=== PATIENT | female | born 2000 | race Asian ===

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

== ENCOUNTER 2021-09-20 22:21 | Emergency (ER) | payer OTHER ==
[2021-09-20 22:29] VITALS: BMI 33.5
[2021-09-21] MEDS ORDERED: ALBUTEROL SO4 HFA INHALER IH ONE ×2 (00:42→01:17)
[2021-09-21] MEDS ORDERED: ELECTROLYTE-148 SOLN 1,000 ML IV ONE (02:40)
[2021-09-21 02:51] VITALS: BP 125/73; PULSE 93; TEMP 97.8
== END 2021-09-21 05:00 | disposition home or self-care (01) ==
LOC: JER 22:21
PROC: 3E033GC Introduction of Other Therapeutic Substance into Peripheral Vein, Percutaneous Approach (ICD-10-PCS; principal; 2021-09-20)
DX: O99.53 Diseases of the respiratory system complicating the puerperium (principal); Z3A.28 28 weeks gestation of pregnancy
CPT/HCPCS: 93005; 93010; 99284-25; C9803; U0003; U0005

== ENCOUNTER 2021-11-06 00:14 | Emergency (ER) | payer OTHER ==
[2021-11-06 00:57] VITALS: BMI 78.0
[2021-11-06] MEDS ORDERED: ALBUTEROL SO4 2.5/IPRATROPIUM 0.5 INH SOL 3 ML VIAL.NEB. NEB ONE ×2 (01:01→01:03)
[2021-11-06] MEDS ORDERED: diphenhydrAMINE HCL 25 MG CAPSULE (FP) PO ONE ×2 (01:02→01:04)
[2021-11-06 04:06] VITALS: BP 137/63; PULSE 104; TEMP 98.4
== END 2021-11-06 03:11 | disposition home or self-care (01) ==
LOC: JER 00:14
PROC: 3E0F7GC Introduction of Other Therapeutic Substance into Respiratory Tract, Via Natural or Artificial Opening (ICD-10-PCS; principal; 2021-11-06)
DX: R06.02 Shortness of breath (principal); R07.89 Other chest pain
CPT/HCPCS: 93005; 93010; 99283-25

== ENCOUNTER 2021-11-18 09:02 | Inpatient (IN) | payer OTHER ==
[2021-11-18] MEDS: ELECTROLYTE-148 SOLN 1,000 ML IV SCH ×2 (10:30→21:50)
[2021-11-18] MEDS ORDERED: AMPICILLIN SODIUM 2 GM VIAL ONE (10:37)
[2021-11-18] MEDS ORDERED: AMPICILLIN - 2 GM in SODIUM CHLORIDE 100 ML IVPB ONE (10:45)
[2021-11-18 11:21] LABS: BASO % 0.2 % (0-2.0); HEMOGLOBIN 12.4 GM/dL (10.7-15.3); LYMPH % 11.3 % (8-40); MCH 25.4 pg (25.7-33.7); MCHC 33.4 g/dl (32.0-36.0); MEAN CELL VOLUME 76.1 fl (80-96); MEAN PLT VOLUME 8.6 fl (7.5-11.1); MONO % 6.9 % (3.8-10.2); NEUT % 79.6 % (42.8-82.8); PLATELET COUNT 256 10^3/uL (134-434); RBC 4.87 M/mm3 (3.60-5.2); RDW 15.6 % (11.6-15.6); WHITE BLOOD COUNT 14.5 K/mm3 (4.0-10.0)
[2021-11-18 11:29] LABS: INR 0.97 (0.83-1.09); PROTHROMBIN TIME (PATIENT) 11.1 SEC (9.7-13.0)
[2021-11-18 11:39] VITALS: BMI 36.0
[2021-11-18] MEDS ORDERED: FENTANYL/BUPIVACAINE/NS/PF - PCEA - 50 ML DISP.SYRIN EP ONE ×4 (11:55→22:19)
[2021-11-18 11:58] LABS: CALCIUM 9.4 mg/dL (8.5-10.1)
[2021-11-18 11:59] LABS: BLOOD UREA NITROGEN 10.4 mg/dL (7-18)
[2021-11-18 12:01] LABS: CREATININE 0.6 mg/dL (0.55-1.3)
[2021-11-18] MEDS: FENTANYL/BUPIVACAINE/NS/PF - PCEA - 50 ML DISP.SYRIN EP SCH ×4 (12:20→22:20)
[2021-11-18] MEDS ORDERED: NALOXONE HCL 0.4 MG/ML VIAL IVPUSH PRN (12:35)
[2021-11-18] MEDS ORDERED: AMPICILLIN SODIUM 1 GM VIAL ONE ×3 (13:33→22:47)
[2021-11-18] MEDS: AMPICILLIN - 1 GM in SODIUM CHLORIDE 100 ML IVPB SCH ×3 (13:45→22:45)
[2021-11-18] MEDS ORDERED: OXYTOCIN 30 UNITS in 0.9% NS 30 UNIT/500 ML INFUS.BAG IVPB ONE (15:05)
[2021-11-18] MEDS ORDERED: OXYTOCIN 30 UNITS in 0.9% NS 30 UNIT/500 ML INFUS.BAG IVPB SCH (15:30)
[2021-11-18] MEDS ORDERED: ALBUTEROL SO4 HFA INHALER IH PRN (22:05)
[2021-11-19] MEDS ORDERED: FENTANYL/BUPIVACAINE/NS/PF - PCEA - 50 ML DISP.SYRIN EP ONE ×3 (01:33→07:39)
[2021-11-19] MEDS: FENTANYL/BUPIVACAINE/NS/PF - PCEA - 50 ML DISP.SYRIN EP SCH ×3 (01:35→07:45)
[2021-11-19] MEDS ORDERED: AMPICILLIN SODIUM 1 GM VIAL ONE ×3 (02:44→09:51)
[2021-11-19] MEDS: AMPICILLIN - 1 GM in SODIUM CHLORIDE 100 ML IVPB SCH ×3 (02:45→10:00)
[2021-11-19] MEDS: ELECTROLYTE-148 SOLN 1,000 ML IV SCH ×2 (06:15→12:40)
[2021-11-19] MEDS ORDERED: OXYTOCIN 20 UNITS in 0.9% NS 20 UNIT/1,000 ML INFUS.BAG IV ONE (07:12)
[2021-11-19] MEDS ORDERED: LIDOCAINE HCL 1% PRESERVATIVE FREE - 30ML VIAL ONE (07:12)
[2021-11-19 11:51] LABS: CORD BASE EXCESS -8.3 mmol/L (0-2); CORD HCO3 18.9 mmHg (20-29); CORD pH 7.242 (7.14-7.44)
[2021-11-19 11:54] LABS: CORD HCO3 21.2 mmHg (20-29); CORD pH 7.111 (7.14-7.44)
[2021-11-19] MEDS ORDERED: ACETAMINOPHEN 325 MG TABLET (FP) PO PRN (12:16)
[2021-11-19] MEDS ORDERED: BISACODYL 10 MG SUPP.RECT RC PRN (12:16)
[2021-11-19] MEDS ORDERED: BENZOCAINE 28 GM HEMORRHOIDAL OINTMENT TP PRN (12:16)
[2021-11-19] MEDS ORDERED: WITCH HAZEL 50% (TUCKS) 40 PAD/JAR PAD TP PRN (12:16)
[2021-11-19] MEDS ORDERED: BENZOCAINE 20% 57 GM BOTTLE TP PRN (12:16)
[2021-11-19] MEDS ORDERED: oxyCODONE HCL 5 MG TABLET PO PRN (12:16)
[2021-11-19] MEDS ORDERED: METHYLERGONOVINE MALEATE 0.2 MG/1 ML AMP IM PRN (12:16)
[2021-11-19] MEDS ORDERED: OXYTOCIN 20 UNITS in 0.9% NS 20 UNIT/1,000 ML INFUS.BAG IV SCH (12:30)
[2021-11-19 13:10] LABS: POC NITRAZINE POS
[2021-11-19] MEDS: IBUPROFEN 600 MG TABLET (FP) PO PRN ×3 (13:10→22:01)
[2021-11-19] MEDS ORDERED: IBUPROFEN 600 MG TABLET (FP) PO ONE (13:14)
[2021-11-20] MEDS: IBUPROFEN 600 MG TABLET (FP) PO PRN ×4 (03:07→20:55)
[2021-11-20 07:53] LABS: BASO % 0.4 % (0-2.0); HEMATOCRIT 26.7 % (32.4-45.2); HEMOGLOBIN 8.8 GM/dL (10.7-15.3); LYMPH % 11.4 % (8-40); MCH 25.4 pg (25.7-33.7); MEAN CELL VOLUME 77.1 fl (80-96); MEAN PLT VOLUME 8.7 fl (7.5-11.1); MONO % 6.5 % (3.8-10.2); NEUT % 77.7 % (42.8-82.8); PLATELET COUNT 170 10^3/uL (134-434); RBC 3.46 M/mm3 (3.60-5.2); RDW 15.9 % (11.6-15.6); WHITE BLOOD COUNT 13.6 K/mm3 (4.0-10.0)
[2021-11-20] MEDS: FENTANYL/BUPIVACAINE/NS/PF - PCEA - 50 ML DISP.SYRIN EP SCH (14:53)
[2021-11-20] MEDS ORDERED: SENNOSIDES/DOCUSATE COMBO (SENNA PLUS) TABLET (UD) PO PRN (22:00)
[2021-11-21] MEDS: IBUPROFEN 600 MG TABLET (FP) PO PRN ×2 (05:14→09:03)
[2021-11-21 09:20] VITALS: BP 106/63; PULSE 96; TEMP 97.8
== END 2021-11-21 12:25 | disposition home or self-care (01) | DRG 560 ==
LOC: JDEL 09:02 → JLDR 10:20 → J3W 11-19 13:15
PROVIDERS: ADMIT Obstetrics & Gynecology; ATTEND Obstetrics & Gynecology
PROC: 10E0XZZ Delivery of Products of Conception, External Approach (ICD-10-PCS; principal; 2021-11-19)
PROC: 0W8NXZZ Division of Female Perineum, External Approach (ICD-10-PCS; 2021-11-19)
PROC: 0HQ9XZZ Repair Perineum Skin, External Approach (ICD-10-PCS; 2021-11-19)
DX: O42.12 Full-term premature rupture of membranes, onset of labor more than 24 hours following rupture (principal); O70.0 First degree perineal laceration during delivery; O99.824 Streptococcus B carrier state complicating childbirth; Z3A.39 39 weeks gestation of pregnancy; Z37.0 Single live birth
CPT/HCPCS: 36415; 36600; 59409; 80048; 82803; 83986-QW; 85025; 85610; 85730; 86780; 86850; 86900; 86901; C9803-CS; U0003; U0005

== ENCOUNTER 2022-05-07 13:17 | Emergency (ER) | payer OTHER ==
[2022-05-07 13:28] VITALS: BP 109/69; PULSE 96; RESP 18; TEMP 98.1; BMI 32.4
[2022-05-07] MEDS ORDERED: ACETAMINOPHEN 1000 MG/100 ML BAG IVPB ONE (13:54)
[2022-05-07] MEDS ORDERED: METOCLOPRAMIDE HCL INJECTION 10 MG/2 ML VIAL IVPUSH ONE (13:54)
[2022-05-07] MEDS ORDERED: SODIUM CHLORIDE 1,000 ML IV STA (13:54)
[2022-05-07] MEDS ORDERED: METOCLOPRAMIDE HCL INJECTION 10 MG/2 ML VIAL ONE (13:56)
[2022-05-07] MEDS ORDERED: ACETAMINOPHEN INJECTION 100 ML IVPB ONE (14:04)
[2022-05-07 14:14] LABS: EPI CELLS >36 /uL (0-25.1); HYALINE CASTS 5 /uL (0-3.1); URINE APPEARANCE CLOUDY; URINE BACTERIA 1268 /uL (0-1359); URINE BILIRUBIN NEGATIVE (NEGATIVE); URINE COLOR YELLOW; URINE GLUCOSE (UA) NEGATIVE (NEGATIVE); URINE KETONE NEGATIVE (NEGATIVE); URINE LEUK ESTERASE 2+ (NEGATIVE); URINE NITRITE NEGATIVE (NEGATIVE); URINE PROTEIN TRACE (NEGATIVE); URINE RBC 12 /uL (0-23.9); URINE UROBILINOGEN 0.2 mg/dL (0.2-1.0); URINE WBC 268 /uL (0-25.8)
[2022-05-07 14:15] LABS: HCG,QUALITATIVE URINE Negative
== END 2022-05-07 15:11 | disposition home or self-care (01) ==
LOC: JERFT 13:17 → JER 13:17 → JERFT 15:11
PROC: 3E033GC Introduction of Other Therapeutic Substance into Peripheral Vein, Percutaneous Approach (ICD-10-PCS; principal; 2022-05-07)
DX: R51.9 Headache, unspecified (principal); N30.00 Acute cystitis without hematuria
CPT/HCPCS: 0241U-QW; 81003; 84703; 87086; 99284-25

== ENCOUNTER 2023-01-18 16:12 | Emergency (ER) | payer OTHER ==
[2023-01-18 16:33] VITALS: BP 101/70; PULSE 95; RESP 18; TEMP 98
[2023-01-18 18:49] LABS: EPI CELLS 11 /uL (0-25.1); HYALINE CASTS 1 /uL (0-3.1); URINE APPEARANCE CLEAR; URINE BACTERIA >9,000 /uL (0-1359); URINE BILIRUBIN NEGATIVE (NEGATIVE); URINE COLOR YELLOW; URINE GLUCOSE (UA) NEGATIVE (NEGATIVE); URINE KETONE TRACE (NEGATIVE); URINE LEUK ESTERASE 1+ (NEGATIVE); URINE NITRITE POSITIVE (NEGATIVE); URINE PROTEIN 2+ (NEGATIVE); URINE RBC 426 /uL (0-23.9); URINE UROBILINOGEN 0.2 mg/dL (0.2-1.0); URINE WBC 1669 /uL (0-25.8)
[2023-01-18] MEDS ORDERED: PHENAZOPYRIDINE HCL 100 MG TABLET (FP) PO ONE (19:07)
[2023-01-18] MEDS ORDERED: CEPHALEXIN MONOHYDRATE 500 MG CAPSULE (UD) PO ONE (19:07)
[2023-01-18] MEDS ORDERED: CEPHALEXIN MONOHYDRATE 500 MG CAPSULE (UD) ONE (19:12)
[2023-01-18] MEDS ORDERED: PHENAZOPYRIDINE HCL 100 MG TABLET (FP) ONE (19:12)
== END 2023-01-18 19:53 | disposition home or self-care (01) ==
LOC: JER 16:12
DX: R10.30 Lower abdominal pain, unspecified (principal); R30.0 Dysuria; R11.0 Nausea; R19.7 Diarrhea, unspecified; R53.83 Other fatigue; N30.00 Acute cystitis without hematuria
CPT/HCPCS: 81003; 87086; 87186; 99283-25